=== PATIENT | male | born 1985 | race Two or more races ===

== ENCOUNTER 2019-05-23 17:53 | Emergency (ER) | payer SELFPAY ==
[~2019-05-23] VITALS: Ht 172.7 cm; Wt 113.0 kg
[2019-05-23] MEDS ORDERED: KETOROLAC 30MG/ML VIAL IV STA (23:09)
[2019-05-23] MEDS ORDERED: SODIUM CHLORIDE 0.9% 1,000 ML IV ONE (23:09)
[2019-05-23] MEDS ORDERED: ONDANSETRON HCL 4MG/2ML INJ IV STA (23:09)
[2019-05-24 01:00] VITALS: BP 132/79
== END 2019-05-24 01:17 | disposition home or self-care (01) ==
LOC: ER 17:53
DX: R51 Headache (principal); R11.2 Nausea with vomiting, unspecified; R42 Dizziness and giddiness
CPT/HCPCS: 70450; 96360; 99284; J7030